=== PATIENT | male | born 1975 | race Two or more races ===

== ENCOUNTER 2017-05-14 00:07 | Inpatient (IN) | payer BC, OTHER ==
[~2017-05-14] VITALS: Ht 175.3 cm; Wt 86.6 kg
--- NOTE | 2017-05-14 00:11 | NUR ---
PT BIBA#97, PT STATES HE TOOK WELLBUTRIN AND 2 OTHER DRUGS WITH A POT BROWNIE AND WAS FOUND BY [employer] RUNNING DOWN THE [address]RE[address] PT DENIES HI OR SI. PT AOX3 RR EVEN AND UNLABORED. NO SOB NOTED. NAD NOTED. NO NVD AT THIS TIME. PT GOWNED AND PLACED ON MONITOR. DR. FAULKNER AT BEDSIDE FOR EVAL.
[2017-05-14] MEDS ORDERED: IV NS 0.9% 1,000 ML BAG IV ONE (00:30)
[2017-05-14] MEDS ORDERED: LORAZEPAM INJ 2 MG/ML VIAL IV ONE (00:30)
--- NOTE | 2017-05-14 00:37 | NUR ---
IV STARTED ON LEFT HAND 20G BLOOD DRAW SENT TO LAB.
[2017-05-14 00:45] LABS: BASOPHILS % (AUTO) 0.5 % (0.0-2.0); EOSINOPHILS # (AUTO) 0.2 /CMM (0.0-0.7); EOSINOPHILS % (AUTO) 1.9 % (0.0-6.0); HEMATOCRIT 39 % (39-51); HEMOGLOBIN 13.2 g/dL (13.5-17.5); LYMPHOCYTES % (AUTO) 11.5 % (20.0-44.0); MEAN CORPUSCULAR HEMOGLOBIN 31 PG (26.0-33.0); MEAN CORPUSCULAR HGB CONC 34 g/dl (31.0-36.0); MEAN CORPUSCULAR VOLUME 92 fL (80-96); MONOCYTES # (AUTO) 0.5 /CMM (0.1-1.30); MONOCYTES % (AUTO) 5.1 % (2.0-12.0); NEUTROPHILS # (AUTO) 7.2 /CMM (1.8-8.9); PLATELET COUNT (AUTO) 244 /CMM (150-450); RDW COEFFICIENT OF VARIATION 13.2 (11.5-15.0); RED BLOOD CELL COUNT(AUTO) 4.24 MIL/uL (4.5-6.0); WHITE BLOOD COUNT (AUTO) 8.9 K/uL (4.3-11.0)
[2017-05-14] MEDS ORDERED: LORAZEPAM INJ 2 MG/ML VIAL ONE (00:46)
[2017-05-14 00:58] LABS: CARBON DIOXIDE 22 mmol/L (21-32); CHLORIDE 108 mmol/L (98-107); GLUCOSE 105 mg/dL (74-106); POTASSIUM 3.9 mmol/L (3.5-5.1); SODIUM SERUM 140 mmol/L (136-145); UREA NITROGEN, BLOOD 16 mg/dL (7-18)
[2017-05-14 01:01] LABS: INR 0.96 (0.87-1.13)
[2017-05-14 01:02] LABS: CREATINE KINASE, TOTAL 169 U/L (39-308)
[2017-05-14 01:04] LABS: ALANINE AMINOTRANSFERASE 39 U/L (12-78); ALBUMIN 3.9 g/dL (3.4-5.0); ALCOHOL, BLOOD < 3 mg/dL (0-0); ALKALINE PHOSPHATASE 67 U/L (46-116); ASPARTATE AMINOTRANSFERASE 17 U/L (15-37); BILIRUBIN,DIRECT 0.1 mg/dL (0.0-0.2); BILIRUBIN,TOTAL 0.2 mg/dL (0.2-1.0); SALICYLATE 3.5 mg/dL (2.8-20.0); TOTAL PROTEIN, SERUM 6.7 g/dL (6.4-8.2)
[2017-05-14 01:05] LABS: ACETAMINOPHEN 0 ug/ml (10-30)
--- NOTE | 2017-05-14 01:55 | NUR ---
UNABLE TO COLLECT URINE. DR. FAULKNER AWARE
--- NOTE | 2017-05-14 01:57 | NUR ---
REPORT GIVEN TO KATHERINE REYES FOR TELE BED 320-2.
[2017-05-14] MEDS ORDERED: LORAZEPAM INJ 2 MG/ML VIAL IV PRN (02:00)
[2017-05-14] MEDS ORDERED: MAGNESIUM HYDROXIDE 30 ML UDC PO PRN (02:00)
[2017-05-14] MEDS ORDERED: Z GUARD REMEDY 2 OZ OINT TP PRN (02:00)
[2017-05-14] MEDS ORDERED: ACETAMINOPHEN 325 MG TABLET PO PRN (02:00)
[2017-05-14] MEDS ORDERED: ONDANSETRON HCL/PF 4 MG/2 ML VIAL IVP PRN (02:00)
[2017-05-14] MEDS ORDERED: ZOLPIDEM TARTRATE 5 MG TABLET PO PRN (02:00)
[2017-05-14 02:10] VITALS: BP 113/69
--- NOTE | 2017-05-14 02:10 | NUR ---
RN NOTES RECEIVED PATIENT FROM ER WITH DX OF POLYPHARMACY, PATIENT WAS FOUND BY [employer] RUNNING DOWN THE STREETS, ALERT AND ORIENTED X4, CALM AT THIS TIME, NO SOB, NO RESPIRATORY DISTRESS, TOLERATING ROOM AIR, SPO2 98%, LUNG SOUNDS ARE CLEAR, ABDOMEN SOFT AND NON-TENDER, ACTIVE BOWEL SOUNDS, DENIES CHEST PAIN, DENIES HEADACHE, S/P FALL, COMPLAINING OF PAIN TO RIGHT SHOULDER, NOTED LEFT FOREHEAD ABRASION, PER PATIENT UNABLE TO REMEMBER FALLING. HAS MULTIPLE SUPERFICIAL ABRASIONS TO LEFT SHOULDER, UPPER AND LOWER EXTREMITIES. PATIENT CAME IN NOT WEARING SHOES. ON ASSESSMENT, ABLE TO RAISE LEFT ARM OVER HEAD, UNABLE TO RAISE RIGHT ARM, PER PATIENT HAS SHOOTING PAIN WHEN RAISING RIGHT ARM. ABLE TO MOVE RIGHT AND LEFT LEGS WITHOUT PAIN. UNSTEADY GAIT, NO COMPLAIN OF DIZZINESS UPON STANDING, ADMITTED TO TAKING DIFFERENT PRESCRIPTION MEDICATIONS SUCH WELLBUTRIN, PROVIGIL AT THE SAME TIME AND HAD SMOKED POT EARLIER. NO URINE OUTPUT YET, UNABLE TO VOID YET. SKIN ASSESSMENT PERFORMED, ORIENTED TO ROOM AND USE OF CALL LIGHT AND PLAN OF CARE. NEEDS ATTENDED, CALL LIGHT WITHIN REACH.
--- NOTE | 2017-05-14 02:13 | NUR ---
PT TRANSFERRED TO [facility] BED 320-2 PER ACLS PROTOCOL.
[2017-05-14] MEDS ORDERED: ENOXAPARIN SODIUM 40 MG/0.4 ML DISP.SYRIN SQ SCH ×2 (02:30→21:00)
--- NOTE | 2017-05-14 03:15 | NUR ---
RN NOTES LOVENOX HELD, S/P FALL WITH RIGHT FOREHEAD ABRASION. FOLDER MACHINE OPERATOR SHEY AWARE. NEW ORDER OF CT SCAN OF HEAD STAT AND LEFT SHOULDER XRAY
--- NOTE | 2017-05-14 03:51 | NUR ---
RN NOTES PATIENT TAKEN TO RADIOLOGY FOR CT SCAN AND XRAY
[2017-05-14 04:00] VITALS: BP 98/67
[2017-05-14] MEDS: IV NS 0.9% 1,000 ML IV PRN ×2 (04:01→17:23)
--- NOTE | 2017-05-14 05:52 | NUR ---
RN NOTES HOGSHEAD PRESS OPERATOR SHEY MADE AWARE OF LEFT SHOULDER FRACTURE, ORDERED TO STABILIZE ARM WITH SLING AND ORTHO CONSULT
[2017-05-14] MEDS ORDERED: HYDROCODONE/APAP 5/325MG 1 EACH TABLET ONE (06:44)
--- NOTE | 2017-05-14 06:49 | NUR ---
RN NOTES PATIENT IS ALERT AND AWAKE, NO SOB, NO RESPIRATORY DISTRESS, COMPLAINING OF PAIN TO LEFT SHOULDER OF 7/10, WILL GIVE NORCO AFTER RECEIVING URINE OUTPUT. SLING PUT IN PLACE TO LEFT SHOULDER, SIGNED PAPER AND COPY IN CHART, LEFT HAND PERIPHERAL LINE IS PATENT AND INFUSING WELL. NEEDS ATTENDED, CALL LIGHT WITHIN REACH.
[2017-05-14] MEDS: HYDROCODONE/APAP 5/325MG 1 EACH TABLET PO PRN ×3 (06:54→17:30)
[2017-05-14 08:00] VITALS: BP 102/61
--- NOTE | 2017-05-14 08:00 | NUR ---
RN NOTES RECEIVED PATIENT IN THE BED A/O X3/4, NO SOB, NO RESPIRATORY DISTRESS, ENCOURAGED TO EXPRESS FEELINGS AND CONCERNS, V/S TAKEN STABLE, SOME ABRASION ON BODY, AND LEFT ARM SLING ON, PATIENT ON PAIN SCALE 3/10, PATIENT USING URINAL, CALL LIGHT WITHIN TO REACH, SAFETY PRECAUTION MAINTAINED ALL THE TIME.
[2017-05-14] MEDS ORDERED: BUPR1FIL3 SL (08:23)
[2017-05-14] MEDS ORDERED: TOPI50TA21 PO (08:23)
[2017-05-14] MEDS ORDERED: FLUO10CA26 PO (08:23)
[2017-05-14] MEDS ORDERED: BUPR-51 PO (08:23)
[2017-05-14] MEDS ORDERED: MODA200T30 PO (08:26)
--- NOTE | 2017-05-14 11:42 | NUR ---
Social service consult requested by Dr. Whaley for overdose. REMI met with pt. bedside. Pt. is a 41 year old male who is alert and oriented x 4. Pt. resides with his parents located at [address] [place] [address] in [facility]. Pt. states his parents are out of town and he does not want anyone to know about his hospitalization. 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 Pt. states he wasn't trying to overdose intentionally. He took Wellbutrin, Prozac, Topomax and Provigil along with a pot brownie "to even out other meds". Pt. states he took the medications and brownie to " become more creative with his music". Pt. stated, he thought he was going to and was having hallucinations when he took all the aforementioned medications and pot brownie. Pt. has a broken shoulder, however he cannot remember if he fell or not and how he injured it. Pt. suffers from Depression, Anxiety and Sleep Apnea. Pt. has been on Suboxone for the past three years. Pt. was given the above medications for anxiety, depression and for post acute withdrawals. However, pt. continued to take the medications. 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 Pt. was in a drug detox program at [facility] in [place] four years ago. Pt. continues to see his psychiatrist Dr. Frank and therapist at [facility] in [place]. REMI offered pt. referrals to inpatient and outpatient drug treatment programs, however, pt. declined. No other social service needs are requested at this time. Med Surg MARION Vasques was informed. SW is available, if needed.
[2017-05-14 12:00] VITALS: BP 104/66
--- NOTE | 2017-05-14 12:00 | NUR ---
RN NOTES/ PATIENT RESTING AT THIS TIME, NO RESPIRATORY DISTRESS, CALL LIGHT WITHIN TO REACH, SAFETY PRECAUTION MAINTAINED ALL THE TIME.
--- NOTE | 2017-05-14 12:28 | NUR ---
RN NOTES ADMINISTERED NARCO 5/325 MG PO PRN PER PATIENT REQUEST GENERALIZED PAIN 03/07, V/S TAKE BP-113/77, P-77, NEEDS ATTENDED AND ANTICIPATED, CALL COLON WITHIN TO REACH, OFFERED SOME JELL-O , SAFETY PRECAUTION MAINTAINED ALL THE TIME.
--- NOTE | 2017-05-14 15:36 | NUR ---
RN NOTES ASSIST PATIENT TO THE BATHROOM, MEDICATION WERE ADMINISTERED FOR PAIN EFFECTIVE, FALL RISK , AND SAFETY PRECAUTION MAINTAINED ALL THE TIME BY HELP OF PRESIDENTIAL SUPPORT SPECIALIST.
[2017-05-14 16:00] VITALS: BP 117/67
--- NOTE | 2017-05-14 17:30 | NUR ---
RN NOTES PATIENT IN THE BED WAS C/O PAIN LEFT SHOULDER, ADMINISTERED NARCO 5/325 MG PO PRN PER PAIN SLIDING SCALE 7/10, PER PATIENT REQUEST, IV INFUSING ON LEFT HAND INTACT, NO INFILTRATION, V/S TAKEN STABLE BP-117/67,P-64, CALL LIGHT WITHIN TO REACH, NEEDS ATTENDED AND ANTICIPATED, SAFETY PRECAUTION MAINTAINED ALL THE TIME.
--- NOTE | 2017-05-14 19:05 | NUR ---
RN NOTES PATIENT GOING TO D/C HOME, NO ACUTE DISTRESS, NO RESPIRATORY DISTRESS, MEDICATION WERE GIVEN FOR PAIN EFFECTIVE, CALL COLON WITHIN TO REACH, EXIT CARE DONE, ENDORSED ONCOMING NURSE FOR CONTINUATION OF CARE. SAFETY PRECAUTION MAINTAINED ALL THE TIME.
--- NOTE | 2017-05-14 19:35 | NUR ---
RN OPENING NOTES RECEIVED REPORT FROM DUY RN, SUDEEP. Pt IS A/OX4, VERBAL, ABLE TO MAKE NEEDS KNOWN. FOUND Pt RESTING IN BED. NO S/S OF ACUTE DISTRESS OR SOB NOTED. BEING DISCHARGED TONIGHT. WAITING FOR GIRLFRIEND TO COME PICK HIM UP. IV ACCESS ON L HAND #20G, SL. ON TELE SR 78. SAFETY MEASURES IN PLACE. BED LOW, LOCKED, HOB ELEVATED, SIDE RAILS UP, CALL LIGHT AND BEDSIDE TABLE WITHIN REACH. WILL CONTINUE TO MONITOR Pt UNTIL D/C.
[2017-05-14 20:24] VITALS: BP 102/71
--- NOTE | 2017-05-14 20:31 | NUR ---
STUDENT SERVICES COUNSELOR NOTES Pt's GIRLFRIEND ARRIVED TO [facility] BURNER Pt. IV REMOVED. NO SIGNS OF BLEEDING. COVERED AREA WITH GAUZE AND SECURED WITH TAPE. Pt LEFT WITH ALL BELONGINGS: SHIRT AND UNDERWEAR. TOOK Pt DOWN ON WHEELCHAIR. Pt WAS A/OX3. NO S/S OF ACUTE DISTRESS OR SOB NOTED. SAFELY TRANSPORTED TO CAR.
== END 2017-05-14 20:25 | disposition home or self-care (01) | DRG 918 ==
LOC: EDBD 00:09 → ER 00:09 → TELE 01:46
PROVIDERS: ADMIT Nurse Practitioner Acute Care; ATTEND Nurse Practitioner Acute Care
DX: T43.691A Poisoning by other psychostimulants, accidental (unintentional), initial encounter (principal); F32.9 Major depressive disorder, single episode, unspecified; T42.6X1A Poisoning by other antiepileptic and sedative-hypnotic drugs, accidental (unintentional), initial encounter; T43.291A Poisoning by other antidepressants, accidental (unintentional), initial encounter; S42.032A Displaced fracture of lateral end of left clavicle, initial encounter for closed fracture; W19.XXXA Unspecified fall, initial encounter; Z87.891 Personal history of nicotine dependence; Y92.009 Unspecified place in unspecified non-institutional (private) residence as the place of occurrence of the external cause; Y93.9 Activity, unspecified; T50.991A Poisoning by other drugs, medicaments and biological substances, accidental (unintentional), initial encounter
CPT/HCPCS: 36415; 70450-TC; 71010-TC; 73030-TC; 80048-TC; 80076-TC; 82550-TC; 85025-TC; 85730-TC; 87081-TC; A4606; A6403; G0480; J2060; J7030; Z7610